=== PATIENT | female | born 1990 | race Caucasian/White ===

== ENCOUNTER 2020-01-09 06:55 | Inpatient (IN) | payer OTHER, SELFPAY ==
[2020-01-09] VITALS (79 sets, daily range): BP systolic 89–141; BP diastolic 49–93; PULSE 69–171; RESP 16; TEMP 36.6–37.6; O2SAT 95–100; BMI 26.7
--- NOTE | 2020-01-09 06:47 | PM.IMHP ---
H&P: HPI History of Present Illness Chief complaint: Pre-In Narrative: Simi English is a 29 year old female whose EDC is 6 [place] confirmed by ultrasound presents at term for induction of labor. has been uncomplicated she is negative group B strep Review of Systems Review of Systems: All systems reviewed & are unremarkable except as noted in HPI and below PMFSH Family History Family History Other Unknown family medical history Social History Social History Substance use: never Spiritual care concerns: No Meds Home Medications and Allergies Home Medications Medication Instructions Recorded Confirmed Type PNV cmb#95-ferrous fumarate-FA 1 tablet PO DAILY 12/16/19 12/16/19 History [] Allergies Allergy/AdvReac Type Severity Reaction Status Date / Time Penicillins Allergy Hives Verified 12/16/19 12:32 Exam Const: General: no acute distress Eyes: General: appearance normal, both eyes and all related structures Neck: Neck: supple and no JVD Thyroid: thyroid normal Resp: Effort & Inspection: normal respiratory effort Auscultation: clear to auscultation bilaterally Cardio: Rate: regular rate Rhythm: regular rhythm GI: Inspection: non-distended GI Palp: Yes Soft to palpation, No Tenderness to palpation present (GI) and No Guarding due to palpation present (GI) Auscultation: normal bowel sounds : General: Yes bladder normal to palpation External Female Exam: normal external appearance Speculum Exam - Vagina: normal vaginal discharge and No vaginal bleeding Speculum Exam - Cervix: nontender Bimanual exam- vagina & uterus: bladder normal to palpation and No Cervical tenderness present OB/external & speculum: No vaginal bleeding Skin: General skin exam: no rashes or lesions noted Extrem: General: normal to inspection and no edema Psych: Mental Status: mental status grossly normal Affect: normal affect Assessment and Plan Additional Plan Impression: Term with favorable cervix Plan: Medical lateral labor. Spontaneous vaginal delivery is expected. She has epidural candidate
--- NOTE | 2020-01-09 07:13 | WPDOBADMIT ---
Obstetrics - Admit Note Admission Note: record reviewed. No pertinent additions to the history and/or any subsequent changes in the physical findings that are not consistent with the expected course of the were found. Additions to the history and/or subsequent changes in the physical findings follow. None. cx /-2 arom clear fhts ok
[2020-01-09] MEDS: LACTATED RINGERS 1,000 ML 125 ML IV CONT ×2 (07:23→09:40)
[2020-01-09 07:24] LABS: Basophils Absolute Auto 0.1 K/mm3 (0.0-0.1); Basophils Percent Auto 0.5 % (0.2-1.2); Eosinophils Absolute Auto 0.2 K/mm3 (0-0.3); Eosinophils Percent Auto 1.3 % (0-4.4); Hematocrit 37.9 % (37.0-47.0); Hemoglobin 12.8 g/dL (12.0-15.0); Immature Granulocyte Percent A 3.5 % (0-0.5); Lymphocytes Absolute Auto 1.56 K/mm3 (0.9-3.2); Lymphocytes Percent Auto 13.7 % (18.3-44.2); Mean Corpuscular HGB Conc 33.8 g/dl (32-36); Mean Corpuscular Hemoglobin 29.3 pg (26-34); Mean Corpuscular Volume 86.7 fl (80-100); Mean Platelet Volume 11.3 fl (7.4-10.4); Monocytes Absolute Auto 0.9 K/mm3 (0.1-0.6); Monocytes Percent Auto 7.7 % (2.6-8.5); Neutrophils Absolute Auto 8.4 K/mm3 (1.3-6.7); Neutrophils Percent Auto 73.3 % (45.5-73.1); Platelet Count Result 223 k/mm3 (150-375); Red Blood Count 4.37 M/mm3 (4.2-5.4); Red Cell Distribution Width 12.9 % (11.5-14.5); White Blood Count 11.4 K/mm3 (4.5-10.0)
--- NOTE | 2020-01-09 07:37 | LDADM ---
This patient, Simi English, was admitted to Labor/Delivery/Recovery 105 on 01/09/20 at 06:55. Plans for labor, pain management and were discussed with patient. Patient/family oriented to hospital policies and general routines including ID bracelet, bed and alarms, visiting hours, pain management, procedures, bathroom and other care routines, personal items, smoking policy, room service/diet and guest tray routines, security routines, and visiting hours. Patient/Family are encouraged to report perceived risks to care and to ask questions if they do not understand what they are told or what they should do. See OBIX for further documentation.
[2020-01-09] MEDS: OXYTOCIN 30 UNITS/NS 500 ML 30 UNITS/500 ML BAG IV CONT (09:36)
[2020-01-09 11:35] LABS: Rapid Plasma Reagin Non-Reactive (NonReactive)
--- NOTE | 2020-01-09 11:42 | PM.OBPRVD ---
OB - Delivery Note Procedure Delivery date: 01/09/20 Procedure: mil//repair 1st degree vag lac Intrapartal events: None Induction method: AROM Delivery augmentation: pitocin Delivery monitor: external FHT Route of delivery: Episiotomy description: None Laceration description: Vaginal - 1st Degree Delivery repair: vicryl Specimen: No Estimated blood loss (mL): 57 Anesthesia type: Epidural Disposition: floor Baby Date of : 01/09/20 Time of : 11:32 Weeks of gestation at delivery: 39 Infant gender: Female presentation: vertex position: Right Occiput Anterior Placenta delivery description: Spontaneous cord vessel description: 3 Vessels and Clamped/Cut score one minute: 5 score five minutes: 9
[2020-01-09] MEDS: OXYTOCIN 30 UNITS/NS 500 ML 30 UNITS/500 ML BAG 125 UNITS IV CONT (12:09)
[2020-01-09] MEDS: WITCH HAZEL 40 PADS 1 PAD TOPICAL (14:04)
[2020-01-09] MEDS: BENZOCAINE 20% AER SPR (*SP) 56 GM CAN 1 SPRAY TOPICAL (14:05)
--- NOTE | 2020-01-09 15:21 | PC.NURSE ---
Addendum entered by Mirta Lamar RN 01/09/20 15:22: arrived to unit at 1411. Original Note: Patient transferred to post room #281 per wheelchair. Support person present. Oriented to unit, room, information board, rooming in, admission packet and security measures. Patient verbalizes understanding.
[2020-01-09] MEDS: DOCUSATE SODIUM 100 MG CAPSULE PO (22:14)
[2020-01-10 05:49] LABS: Hematocrit 35.3 % (37.0-47.0); Hemoglobin 11.6 g/dL (12.0-15.0)
--- NOTE | 2020-01-10 06:48 | P.PNOB_ITS ---
OB - PN: Subj Subjective Date/time seen: 01/10/20 06:48 Patient comments: no complaints and pain well controlled feeding status: exclusively bottle feeding OB - PN: Obj Data Labs CBC & Chem 7: 01/10/20 04:33 Labs: Laboratory Results - last 24 hr 01/09/20 01/09/20 01/09/20 07:16 07:16 07:16 WBC 11.4 H RBC 4.37 Hgb 12.8 Hct 37.9 MCV 86.7 MCH 29.3 MCHC 33.8 RDW 12.9 Plt Count 223 MPV 11.3 H Immature Gran % (Auto) 3.5 H Neut % (Auto) 73.3 H Lymph % (Auto) 13.7 L [place] % (Auto) 7.7 Eos % (Auto) 1.3 Baso % (Auto) 0.5 Lymph # (Auto) 1.56 [place] # (Auto) 0.9 H Eos # (Auto) 0.2 Baso # (Auto) 0.1 Abs Immat Gran (auto) 0.40 H Absolute Neuts (auto) 8.4 H Absolute Nucleated RBC 0.0 Nucleated RBC % 0.0 RPR Non-reactive Blood Type A Positive Antibody Screen Negative 01/10/20 04:33 WBC RBC Hgb 11.6 L Hct 35.3 L MCV MCH MCHC RDW Plt Count MPV Immature Gran % (Auto) Neut % (Auto) Lymph % (Auto) [place] % (Auto) Eos % (Auto) Baso % (Auto) Lymph # (Auto) [place] # (Auto) Eos # (Auto) Baso # (Auto) Abs Immat Gran (auto) Absolute Neuts (auto) Absolute Nucleated RBC Nucleated RBC % RPR Blood Type Antibody Screen OB - PN A/P Plan day: 1 Plan: routine care, discharge home and follow up 6 weeks Time Spent With Patient Time: Total time spent is greater than 50% in coordination of care (as documented) at patient's floor/unit and/or counseling patient: Time with patient: less than 15 minutes Review of Systems Review of Systems: All systems reviewed & are unremarkable except as noted in HPI and below Exam Const: General: no acute distress Eyes: General: appearance normal, both eyes and all related structures Neck: Neck: supple and no JVD Thyroid: thyroid normal Resp: Effort & Inspection: normal respiratory effort Auscultation: clear to auscultation bilaterally Cardio: Rate: regular rate Rhythm: regular rhythm GI: Inspection: non-distended GI Palp: Yes Soft to palpation, No Tenderness to palpation present (GI) and No Guarding due to palpation present (GI) Auscultation: normal bowel sounds : General: Yes bladder normal to palpation External Female Exam: normal e xternal appearance Speculum Exam - Vagina: normal vaginal discharge and No vaginal bleeding Speculum Exam - Cervix: nontender Bimanual exam- vagina & uterus: bladder normal to palpation and No Cervical tenderness present OB/external & speculum: No vaginal bleeding Skin: General skin exam: no rashes or lesions noted Extrem: General: normal to inspection and no edema Psych: Mental Status: mental status grossly normal Affect: normal affect
[2020-01-10 07:40] VITALS: BP 124/72; PULSE 81; RESP 18; TEMP 36.6; O2SAT 98
--- NOTE | 2020-01-10 07:45 | WPDANLDPN2 ---
Anes-Prog Note L&D Date/Time: 01/10/20 07:45 Comfortable throughout: labor and delivery Neuraxial method: epidural Neuro status: Neuro function grossly intact. Cardiovascular status: normal Respiratory status: normal Airway patency: baseline Mental status: baseline Post-Op hydration status: normal Vital Signs: Last Vital Signs Temp 36.8 C 01/09/20 20:15 Pulse 82 01/09/20 20:15 Resp 16 01/09/20 20:15 BP 121/69 01/09/20 20:15 Pulse Ox 98 01/09/20 20:15 I/O: Intake & Output 01/09/20 01/09/20 01/10/20 15:59 23:59 07:59 Intake Total 2200 Balance 2200 Post-procedural complaints: none Patient feedback: Patient satisfied with anesthetic care.
--- NOTE | 2020-01-10 09:35 | PC.NURSE ---
Consulted with patient, mother reports some tenderness with feedings. Mother states she pumped and bottle fed first child for several months, infant would not latch. Reviewed feeding cues, frequencies, duration of feedings, feeding elimination flow sheet, and signs of adequate intake. Demonstrated stimulation techniques to wake for feeding. Assisted with to breast. Reviewed positioning/alignment in cross cradle, holding breast in U hold and guided asymmetrical latch on. Infant was able to latch correctly. Mother reports slight discomfort. Breasts are firm, demonstrated how to adjust latch more deeply while feeding. Mother was able to independently adjust latch and reported less discomfort. Both nipples have redness. Instructed on nipple care. nursed eagerly, with steady draws and frequent swallowing noted. Reviewed signs of a correct latch, effective nursing and suck swallow ratio. was able to maintain latch without discomfort to mother. Mother wishes to be discharged today. Mother is feeding as required and waking to feed if needed. has had several effective feedings (as required) in the past 24 hours, and is currently meeting outcomes for weight, output, jaundice and feeding frequencies. Mother states she feels confident to continue effective at home. Reviewed transition to breast milk, signs of adequate intake, and engorgement/relief. Instructed to call ICP if intake/output less than required. Reviewed regular medications mother is taking. Information provided per [facility]. Reviewed community resources on the [facility] website and in the Mom/Baby guide. Information on outpatient services provided. Mother has no further questions at this time.
[2020-01-11 09:21] VITALS: BP 137/83; PULSE 69; RESP 16; TEMP 36.9; O2SAT 98
--- NOTE | 2020-01-12 12:33 | PM.DS ---
DS: Admitting Diagnosis Admitting Diagnosis Admitting Diagnosis: term DS: Summary Time Spent with Patient Time attestation: Total time spent providing and/or coordinating discharge services: Exam Const: General: no acute distress Eyes: General: appearance normal, both eyes and all related structures Neck: Neck: supple and no JVD Thyroid: thyroid normal Resp: Effort & Inspection: normal respiratory effort Auscultation: clear to auscultation bilaterally Cardio: Rate: regular rate Rhythm: regular rhythm GI: Inspection: non-distended GI Palp: Yes Soft to palpation, No Tenderness to palpation present (GI) and No Guarding due to palpation present (GI) Auscultation: normal bowel sounds : General: Yes bladder normal to palpation External Female Exam: normal external appearance Speculum Exam - Vagina: normal vaginal discharge and No vaginal bleeding Speculum Exam - Cervix: nontender Bimanual exam- vagina & uterus: bladder normal to palpation and No Cervical tenderness present OB/external & speculum: No vaginal bleeding Skin: General skin exam: no rashes or lesions noted Extrem: General: normal to inspection and no edema Psych: Mental Status: mental status grossly normal Affect: normal affect Discharge Plan Discharge Attending physician on discharge: Shawn Ng Discharging Clinician: Shawn Ng Patient Disposition: Home, Self-Care Activity: may shower, no straining and pelvic rest Diet: heart healthy Discharge Instructions: Education: Mom and Baby Guide Given to: Mother Follow-Up: Call your delivering provider's office for an appointment to be seen in: 6 Weeks Mom and baby should come to the [facility] for the follow-up appointment. Appointment Date/Time: January 11, 2020 at 9:00 am What to expect at your follow-up visit: Blood Pressure Check Physical Assessment Call [phone] if you are unable to keep your appointment time. BREAST CARE: 1. Wear a snug supportive bra. 2. For engorgement discomfort: Breast Feeding: A. Apply warm moist washcloths B. Express milk as needed to relieve engorgement C. Wear loose clothing Bottle Feeding: A. May apply ice packs 3. For sore nipples: A. Identify correct latch-on B. Apply warm moist washcloths before and after nursing C. Air dry nipples after nursing D. May apply Lansinoh cream to nipples EPISIOTOMY/PERINEAL CARE: 1. Until bleeding stops, use your peterson bottle after urinating 2. Change your pad frequently throughout the day 3. You may take sitz baths several times a day (fill your bathtub with warm water and soak for 20 minutes.) Do NOT bathe in the water 4. No tub baths until seen by your physician - You may shower ACTIVITY: 1. Rest as much as possible. 2. Do not exercise or lift anything heavier than your baby (such as laundry or other children.) 3. Avoid stairs or driving as much as possible. 4. Do not put anything into the vagina. No douching, tampons, or sexual activity until seen by physician. NOTIFY PHYSICIAN IF YOU HAVE ANY QUESTIONS OR IF ANY OF THE FOLLOWING SYMPTOMS OCCUR: 1. If your episiotomy or incision becomes red, swollen, or more painful than what you have experienced in the hospital. 2. If your vaginal bleeding becomes foul smelling. 3. If your vaginal bleeding becomes more heavy than a period or if your bleeding changes from pink to bright red. However, you may pass an occasional walnut-sized clot once or twice for the first week . 4. If you experience a sharp, shooting pain in you calves. 5. If you discover a hard, reddened area on your breast or if you experience flu-like symptoms. DIET: 1. Eat regular, well-balanced meals. 2. Drink plenty of fluids daily. If , drink to thirst. Stand Alone Forms: General Discharge Information Follow-up/Referrals: [facility]
== END 2020-01-10 14:09 | disposition home or self-care (01) | DRG 807 ==
LOC: ANHLDR 06:58 → ANHOB2 14:51
PROVIDERS: Admitting Provider Obstetrics & Gynecology; Visit Provider Obstetrics & Gynecology
DX: O69.81X0 Labor and delivery complicated by cord around neck, without compression, not applicable or unspecified (principal); Z37.0 Single live birth; Z3A.39 39 weeks gestation of pregnancy; O70.0 First degree perineal laceration during delivery
CPT/HCPCS: 36415; 85014; 85018; 85025; 86592; 86850; 86900; 86901; A9270; J2370; J2590; J2795; J7120

== ENCOUNTER 2024-02-27 12:18 | Inpatient (IN) | payer OTHER, SELFPAY ==
[2024-02-27] VITALS (170 sets, daily range): BP systolic 82–140; BP diastolic 40–114; PULSE 64–242; RESP 16; TEMP 36.9–38.1; O2SAT 94–100; BMI 22.6
[2024-02-27] MEDS: ceFAZolin 2 GM/D5W 50 ML 2 GM/50 ML BAG IVPB (13:00)
[2024-02-27] MEDS: LACTATED RINGERS 1,000 ML 125 ML IV CONT ×2 (13:00→14:31)
--- NOTE | 2024-02-27 13:02 | LDADM ---
This patient, Simi English, was admitted to Labor/Delivery/Recovery 105 on 02/27/24 at 12:18. Plans for labor, pain management and were discussed with patient. Patient/family oriented to hospital policies and general routines including ID bracelet, bed and alarms, visiting hours, pain management, procedures, bathroom and other care routines, personal items, smoking policy, room service/diet and guest tray routines, security routines, and visiting hours. Patient/Family are encouraged to report perceived risks to care and to ask questions if they do not understand what they are told or what they should do. See OBIX for further documentation.
[2024-02-27 13:06] LABS: Basophils Percent Auto 0.4 % (0.2-1.2); Eosinophils Absolute Auto 0.1 K/mm3 (0-0.3); Eosinophils Percent Auto 0.5 % (0-4.4); Hematocrit 34.6 % (37.0-47.0); Hemoglobin 11.7 g/dL (12.0-15.0); Immature Granulocyte Absolute 0.17 K/mm3 (0.00-0.031); Immature Granulocyte Percent A 1.5 % (0-0.5); Lymphocytes Absolute Auto 1.62 K/mm3 (0.9-3.2); Lymphocytes Percent Auto 14.3 % (18.3-44.2); Mean Corpuscular HGB Conc 33.8 g/dl (32-36); Mean Corpuscular Hemoglobin 30.3 pg (26-34); Mean Corpuscular Volume 89.6 fl (80-100); Monocytes Absolute Auto 0.8 K/mm3 (0.1-0.6); Monocytes Percent Auto 7.1 % (2.6-8.5); Neutrophils Absolute Auto 8.6 K/mm3 (1.3-6.7); Neutrophils Percent Auto 76.2 % (45.5-73.1); Platelet Count Result 208 k/mm3 (150-375); Red Blood Count 3.86 M/mm3 (4.2-5.4); Red Cell Distribution Width 12.5 % (11.5-14.5); White Blood Count 11.3 K/mm3 (4.5-10.0)
[2024-02-27 13:50] LABS: HIV 1/2 Ab P24 Ag Result Negative (Negative)
--- NOTE | 2024-02-27 15:06 | WPDANESEPP ---
Anes - Eval Pre Procedure Procedure: labor epidural Date/Time: 02/27/24 15:06 Preop Diagnosis: labor pain Pre Op Diagnosis: Vaginal Bleeding Patient Data Age: 34 Gender: F Height: 1.63 m Weight: 60 kg Last Vital Signs Temp 37.0 C 02/27/24 13:57 Pulse 75 02/27/24 15:00 BP 119/60 02/27/24 15:00 Pulse Ox 99 02/27/24 15:03 O2 Del Method Room Air 02/27/24 13:01 Allergies Allergy/AdvReac Type Severity Reaction Status Date / Time Penicillins Allergy Hives Verified 12/16/19 12:32 Home Medications Medication Instructions Recorded Confirmed Type vit no.95-ferrous 1 tablet PO DAILY 12/16/19 02/27/24 History fumarate 28 mg-folic acid 800 mcg tablet () Laboratory Tests 02/27/24 12:49 WBC 11.3 H K/mm3 (4.5-10.0) RBC 3.86 L M/mm3 (4.2-5.4) Hgb 11.7 L g/dL (12.0-15.0) Hct 34.6 L % (37.0-47.0) MCV 89.6 fl (80-100) MCH 30.3 pg (26-34) MCHC 33.8 g/dl (32-36) RDW 12.5 % (11.5-14.5) Plt Count 208 k/mm3 (150-375) MPV 11.0 H fl (7.4-10.4) Immature Gran % (Auto) 1.5 H % (0-0.5) Neut % (Auto) 76.2 H % (45.5-73.1) Lymph % (Auto) 14.3 L % (18.3-44.2) [place] % (Auto) 7.1 % (2.6-8.5) Eos % (Auto) 0.5 % (0-4.4) Baso % (Auto) 0.4 % (0.2-1.2) Lymph # (Auto) 1.62 K/mm3 (0.9-3.2) [place] # (Auto) 0.8 H K/mm3 (0.1-0.6) Eos # (Auto) 0.1 K/mm3 (0-0.3) Baso # (Auto) 0.0 K/mm3 (0.0-0.1) Abs Immat Gran (auto) 0.17 H K/mm3 (0.00-0.031) Absolute Neuts (auto) 8.6 H K/mm3 (1.3-6.7) Absolute Nucleated RBC 0.000 K/mm3 (0.0-0.012) Nucleated RBC % 0.0 % (0.0-0.2) RPR Pending HIV 1&2 Ab/P24 Ag 4thGn Negative (Negative) Blood Type A Positive Antibody Screen Negative Patient hx anesthesia problems: none Family hx anesthesia problems: none Results Review: All pre-operative results and documents have been reviewed as part of the pre-operative evaluation. [facility] Family History Family History Other Unknown family medical history Social History Social History Smoking status: Never smoker Substance use: never Do You Feel Safe in your Home?: Yes Lack of Transportation: No Lack of Food: Never True Current Housing: I Have Housing Concerned About Future Housing: No Difficulty Paying Gas/Electric Bills: No Difficulty Paying for Meds: No Currently Unemployed: No Education: Bachelor's Degree Difficulty w/ Childcare or Family Care: No Spiritual care concerns: No Exam Day of Procedure 02/27/24 15:06 Patient weight: normal Heart: regular rate and rhythm Lungs: clear to auscultation and normal air movement Airway: Mallampati scale class II Neurological: alert and oriented
[2024-02-27] MEDS: PHENYLEPHRINE 1,000 MCG/10 ML SYRINGE 100 MCG IV PUSH (16:05)
--- NOTE | 2024-02-27 17:42 | PM.IMHP ---
H&P: HPI History of Present Illness Date/Time: 02/27/24 17:42 Chief Complaint: Vaginal bleeding. Narrative: 34 y/o at 36 3/7 weeks here with vaginal bleeding. No contractions. Here in hospital she had gross ROM of clear fluid. Subsequent contractions. Now comfortable with epidural. More blood was seen at her last exam, so I was called to come evaluate. Review of Systems Review of Systems: All systems reviewed & are unremarkable except as noted in HPI and below PMFSH Family History Family History Other Unknown family medical history Social History Social History Smoking status: Never smoker Substance use: never Do You Feel Safe in your Home?: Yes Lack of Transportation: No Lack of Food: Never True Current Housing: I Have Housing Concerned About Future Housing: No Difficulty Paying Gas/Electric Bills: No Difficulty Paying for Meds: No Currently Unemployed: No Education: Bachelor's Degree Difficulty w/ Childcare or Family Care: No Spiritual care concerns: No Meds Home Medications and Allergies Home Medications Medication Instructions Recorded Confirmed Type vit no.95-ferrous 1 tablet PO DAILY 12/16/19 02/27/24 History fumarate 28 mg-folic acid 800 mcg tablet () Allergies Allergy/AdvReac Type Severity Reaction Status Date / Time Penicillins Allergy Hives Verified 12/16/19 12:32 Vital Signs Vital Signs - 24 hr 02/27/24 12:30 02/27/24 12:33 02/27/24 12:38 Temperature Pulse Rate 81 Blood Pressure 133/86 Pulse Oximetry 99 99 Oxygen Delivery 02/27/24 12:43 02/27/24 12:45 02/27/24 12:48 Temperature Pulse Rate 78 Blood Pressure 123/58 L Pulse Oximetry 98 99 Oxygen Delivery 02/27/24 12:53 02/27/24 12:58 02/27/24 13:00 Temperature Pulse Rate 70 Blood Pressure 122/62 Pulse Oximetry 99 99 Oxygen Delivery 02/27/24 13:03 02/27/24 13:08 02/27/24 13:13 Temperature Pulse Rate Blood Pressure Pulse Oximetry 100 99 99 Oxygen Delivery 02/27/24 13:15 02/27/24 13:18 02/27/24 13:23 Temperature Pulse Rate 71 Blood Pressure 127/76 Pulse Oximetry 100 100 Oxygen Delivery 02/27/24 13:28 02/27/24 13:30 02/27/24 13:33 Temperature Pulse Rate 72 Blood Pressure 122/71 Pulse Oximetry 99 100 Oxygen Delivery 02/27/24 13:38 02/27/24 13:43 02/27/24 13:45 Temperature Pulse Rate 72 Blood Pressure 117/63 Pulse Oximetry 100 99 Oxygen Delivery 02/27/24 13:48 02/27/24 13:53 02/27/24 13:58 Temperature Pulse Rate Blood Pressure Pulse Oximetry 100 100 99 Oxygen Delivery 02/27/24 14:03 02/27/24 14:08 02/27/24 14:13 Temperature Pulse Rate Blood Pressure Pulse Oximetry 100 100 100 Oxygen Delivery 02/27/24 14:18 02/27/24 14:23 02/27/24 14:28 Temperature Pulse Rate Blood Pressure Pulse Oximetry 100 100 100 Oxygen Delivery 02/27/24 14:33 02/27/24 14:38 02/27/24 14:43 Temperature Pulse Rate Blood Pressure Pulse Oximetry 100 100 100 Oxygen Delivery 02/27/24 14:48 02/27/24 13:57 02/27/24 14:53 Temperature 37.0 C Pulse Rate Blood Pressure Pulse Oximetry 100 100 Oxygen Delivery 02/27/24 14:58 02/27/24 15:00 02/27/24 15:03 Temperature Pulse Rate 75 Blood Pressure 119/60 Pulse Oximetry 100 99 Oxygen Delivery 02/27/24 15:08 02/27/24 15:10 02/27/24 15:15 Temperature Pulse Rate Blood Pressure Pulse Oximetry 99 99 99 Oxygen Delivery 02/27/24 15:20 02/27/24 15:25 02/27/24 15:26 Temperature Pulse Rate 68 87 Blood Pressure 115/65 108/60 Pulse Oximetry 100 100 Oxygen Delivery 02/27/24 15:27 02/27/24 15:30 02/27/24 15:33 Temperature Pulse Rate 78 80 79 Blood Pressure 121/58 L 129/61 116
[2024-02-27] MEDS: OXYTOCIN 30 UNITS/NS 500 ML 30 UNITS/500 ML BAG IV CONT (18:41)
--- NOTE | 2024-02-27 18:59 | PM.OBPNLAB ---
Pain Control Date/time seen: 02/27/24 18:59 Comments: Comfortable. Pelvic Exam Dilation (cm): 5 Effacement (%): 50 station: -2 Contractions Contraction pattern: Irregular Status status: Category l Assessment and Plan Pitocin rate (mU/min): 2 Plan: continuous present management
--- NOTE | 2024-02-27 20:37 | PM.OBPRVD ---
OB - Vaginal Delivery Note Procedure Delivery date: 02/27/24 Induction method: None Delivery augmentation: Pitocin Delivery monitor: External FHT, External Uterine and Internal Uterine Route of delivery: Laceration Description: None Specimen: Yes (cord blood) Quantitative Blood Loss (ml): 120 Anesthesia type: Epidural Disposition: PACU Complications: None Narrative: 34 y/o at 36 3/7 weeks gestation who presented to the hospital after a gush of blood. While on L&D for evaluation, she had SROM of clear fluid. She was admitted and received an epidural for pain control. She was given Ancef for GBS unknown status in the . Labor was subsequently augmented with oxytocin. Her labor progressed and her cervix dilated completely. She pushed with good effort over only one contraction and delivered the 's head to the perineum, followed by the body. The nose and mouth were bulb suctioned. After a delay, the cord was clamped and cut. The was handed off the field. Cord blood was collected. The placenta delivered spontaneously and was grossly normal in appearance. The usual 3 vessel cord was noted. There were no lacerations. Needle and instrument counts were correct. The patient was taken to recovery room in stable condition. The went to the nursery in stable condition. I was present and scrubbed for the entire delivery. [place] [facility] Date of : 02/27/24 Time of : 20:27 Weeks of gestation at delivery: 36 gender: Female presentation: vertex position: Left Occiput Anterior Placenta delivery description: Spontaneous and Normal Configuration Cord Vessel Description: 3 Vessels, Nuchal Cord and Delayed Cord Clamping score one minute: 9 score five minutes: 9
--- NOTE | 2024-02-27 20:41 | PM.OBDSVD ---
DS: Admitting Diagnosis Discharge Date 02/29/24 <Luke Garcia MD - Last Filed: 02/29/24 08:55> Admitting Diagnosis IUP at 36 3/7 weeks SROM <Luke Garcia MD - Last Filed: 02/29/24 08:55> DS: Discharge Diagnosis Discharge Diagnosis (1) (normal spontaneous vaginal delivery): Code(s): O80 - Encounter for full-term uncomplicated delivery <Luke Garcia MD - Last Filed: 02/29/24 08:55> Status: Acute <Luke Garcia MD - Last Filed: 02/29/24 08:55> (2) delivery, delivered: Code(s): O60.10X0 - labor with delivery, unspecified trimester, not applicable or unspecified <Luke Garcia MD - Last Filed: 02/29/24 08:55> Status: Acute <Luke Garcai MD - Last Filed: 02/29/24 08:55> OB - DS: Summary Hospital Course Hospital Course: Paste underwent spontaneous vaginal delivery. Her hospital course unremarkable of the baby was then irregular heartbeat was kept is no care bed. She remained afebrile she was up, voiding without difficulty, eating regular diet, ambulating, generally without complaints. <Luke Garcia MD - Last Filed: 02/29/24 08:55> OB Procedures : None <Luke Garcia MD - Last Filed: 02/29/24 08:55> OB Procedures Intrapartum: GBS prophylaxis <Luke Garcai MD - Last Filed: 02/29/24 08:55> OB Procedures: : None <Luke Garcia MD - Last Filed: 02/29/24 08:55> Peripartum Data Laceration Description: None <Luke Garcia MD - Last Filed: 02/29/24 08:55> Time Spent with Patient Time attestation: Total time spent providing and/or coordinating discharge services: <Luke Garcia MD - Last Filed: 02/29/24 08:55> Exam Const: General: cooperative, healthy appearing and comfortable <Shawn Contreras MD - Last Filed: 02/29/24 07:15> Nutritional Appearance: average body habitus <Shawn Contreras MD - Last Filed: 02/29/24 07:15> Orientation/consciousness: oriented to person, oriented to place and oriented to time <Shawn Contreras MD - Last Filed: 02/29/24 07:15> HENMT: Head: normal to inspection <Shawn Contreras MD - Last Filed: 02/29/24 07:15> Resp: Effort & Inspection: normal respiratory effort <Shawn Contreras MD - Last Filed: 02/29/24 07:15> Cardio: Rate: regular rate <Shawn Contreras MD - Last Filed: 02/29/24 07:15> Rhythm: regular rhythm <Shawn Contreras MD - Last Filed: 02/29/24 07:15> Heart sounds: S1 normal heart sound present and S2 normal heart sound present <Shawn Contreras MD - Last Filed: 02/29/24 07:15> GI: Inspection: normal to inspection <Shawn Contreras MD - Last Filed: 02/29/24 07:15> DS: Data Data Completed and Pending Labs on day of discharge: Labs from last 24 hours 02/27/24 12:49 WBC 11.3 H RBC 3.86 L Hgb 11.7 L Hct 34.6 L MCV 89.6 MCH 30.3 MCHC 33.8 RDW 12.5 Plt Count 208 MPV 11.0 H Immature Gran % (Auto) 1.5 H Neut % (Auto) 76.2 H Lymph % (Auto) 14.3 L [place] % (Auto) 7.1 Eos % (Auto) 0.5 Baso % (Auto) 0.4 Lymph # (Auto) 1.62 [place] # (Auto) 0.8 H Eos # (Auto) 0.1 Baso # (Auto) 0.0 Abs Immat Gran (auto) 0.17 H Absolute Neuts (auto) 8.6 H Absolute Nucleated RBC 0.000 Nucleated RBC % 0.0 RPR Pending HIV 1&2 Ab/P24 Ag 4thGn Negative Blood Type A Positive Antibody Screen Negative <Luke Garcia MD - Last Filed: 02/29/24 08:55> Discharge Plan Discharge Attending physician on discharge: Luke Garcia <Luke Garcia MD - Last Filed: 02/29/24 08:55> Luke Garcia <Shawn Contreras MD - Last Filed: 02/29/24 07:15> Discharging Clinician: Shawn Barnes <Luke Garcia MD - Last Filed: 02/29/24 08:55> Shawn Barnes <Shawn Contreras MD - Last Filed: 02/29/24 07:15> Patient Disposition: Home, Self-Care <Luke Garcia MD - Last
[2024-02-27] MEDS: ACETAMINOPHEN 500 MG TABLET 1000 MG PO (20:57)
[2024-02-27] MEDS: OXYTOCIN 30 UNITS/NS 500 ML 30 UNITS/500 ML BAG 125 UNITS IV CONT (21:00)
[2024-02-27] MEDS: WITCH HAZEL 40 PADS 1 PAD TOPICAL (22:09)
[2024-02-27] MEDS: BENZOCAINE 20% AER SPR (*SP) 56 GM CAN 1 SPRAY TOPICAL (22:09)
[2024-02-27] MEDS: IBUPROFEN 600 MG TABLET PO (23:24)
[2024-02-28 00:18] LABS: Rapid Plasma Reagin Non-Reactive (NonReactive)
--- NOTE | 2024-02-28 04:31 | OBPPTRN ---
Patient transferred to post room #[id number] . Support person present. Oriented to unit, room, information board, rooming in, admission packet and security measures. Patient verbalizes understanding.
[2024-02-28 04:55] LABS: Hematocrit 29.1 % (37.0-47.0); Hemoglobin 9.7 g/dL (12.0-15.0)
[2024-02-28] MEDS: IBUPROFEN 600 MG TABLET PO (04:58)
[2024-02-28] MEDS: ACETAMINOPHEN 325 MG TABLET 650 MG PO (04:58)
[2024-02-28] MEDS: DOCUSATE SODIUM 100 MG CAPSULE PO ×2 (07:49→17:05)
[2024-02-28] MEDS: MULTIVIT/MIN/PREN/FOL AC/IRON TABLET 1 TAB PO (07:50)
[2024-02-28] MEDS: LANOLIN (LANSINOH) 7.5 GM CREAM 1 APPLIC TOPICAL (07:50)
[2024-02-28] MEDS: POLYSACCHARIDE IRON COMPLEX 150 MG CAPSULE PO ×2 (07:50→17:05)
[2024-02-28 07:51] VITALS: BP 118/66; PULSE 72; RESP 16; TEMP 36.5; O2SAT 100
--- NOTE | 2024-02-28 09:15 | PM.OBPNVD ---
OB - PN: Subj Subjective Date/time seen: 02/28/24 09:15 Narrative: Pain OK. OB - PN: Obj Data Labs 02/28/24 04:45 Labs: Laboratory Results - last 24 hr 02/27/24 02/28/24 12:49 04:45 WBC 11.3 H RBC 3.86 L Hgb 11.7 L 9.7 L Hct 34.6 L 29.1 L MCV 89.6 MCH 30.3 MCHC 33.8 RDW 12.5 Plt Count 208 MPV 11.0 H Immature Gran % (Auto) 1.5 H Neut % (Auto) 76.2 H Lymph % (Auto) 14.3 L [place] % (Auto) 7.1 Eos % (Auto) 0.5 Baso % (Auto) 0.4 Lymph # (Auto) 1.62 [place] # (Auto) 0.8 H Eos # (Auto) 0.1 Baso # (Auto) 0.0 Abs Immat Gran (auto) 0.17 H Absolute Neuts (auto) 8.6 H Absolute Nucleated RBC 0.000 Nucleated RBC % 0.0 RPR Non-reactive HIV 1&2 Ab/P24 Ag 4thGn Negative Blood Type A Positive Antibody Screen Negative OB - PN A/P Plan day: 1 Comments: A: PPD#1, doing well. P: Routine care. Home tomorrow. Exam Psych: Other: AVSS ABD soft, nontender, fundus firm EXT nontender
[2024-02-28 13:00] VITALS: BP 111/73; PULSE 75; RESP 16; TEMP 36.1; O2SAT 100
--- NOTE | 2024-02-28 15:40 | WPDANLDPN2 ---
Anes-Prog Note L&D Date/Time: 02/28/24 15:40 Comfortable throughout: labor and delivery Neuraxial method: epidural Epidural/Spinal procedure site: clean & non-tender Neuro status: Neuro function grossly intact. Cardiovascular status: normal Respiratory status: normal Airway patency: baseline Mental status: baseline Post-Op hydration status: normal Vital Signs: Last Vital Signs Temp 37.2 C 02/27/24 23:10 Pulse 86 02/27/24 23:10 Resp 16 02/27/24 23:10 BP 117/68 02/27/24 23:10 Pulse Ox 100 02/27/24 23:10 O2 Del Method Room Air 02/27/24 13:01 Pain score (VAS): 0 I/O: Intake & Output 02/27/24 02/28/24 02/28/24 23:59 07:59 15:59 Intake Total 100 Balance 100 Post-procedural complaints: none Patient feedback: Patient satisfied with anesthetic care.
[2024-02-28 20:50] VITALS: BP 111/67; PULSE 79; RESP 16; TEMP 37.3; O2SAT 99
--- NOTE | 2024-02-29 07:15 | PM.OBPNVD ---
OB - PN: Subj Subjective Date/time seen: 02/29/24 07:15 Patient comments: no complaints and pain well controlled baby status: doing well and other ( Baby me to stay secondary to irregular rhythm) OB - PN: Obj Data Labs 02/28/24 04:45 OB - PN A/P Plan day: 2 Plan: routine care, discharge home and follow up 6 weeks Time Spent With Patient Time: Total time spent is greater than 50% in coordination of care (as documented) at patient's floor/unit and/or counseling patient: Time with patient: less than 15 minutes Exam Const: General: cooperative, healthy appearing and comfortable Nutritional Appearance: average body habitus Orientation/consciousness: oriented to person, oriented to place and oriented to time Resp: Effort & Inspection: normal respiratory effort Cardio: Rate: regular rate Rhythm: regular rhythm Heart sounds: S1 normal heart sound present and S2 normal heart sound present GI: Inspection: normal to inspection
[2024-02-29 08:10] VITALS: BP 117/72; PULSE 75; RESP 16; TEMP 36.8; O2SAT 100
[2024-02-29] MEDS: DOCUSATE SODIUM 100 MG CAPSULE PO ×2 (08:12→17:37)
[2024-02-29] MEDS: MULTIVIT/MIN/PREN/FOL AC/IRON TABLET 1 TAB PO (08:12)
[2024-02-29] MEDS: POLYSACCHARIDE IRON COMPLEX 150 MG CAPSULE PO ×2 (08:13→17:37)
--- NOTE | 2024-02-29 10:49 | PC.NURSE ---
1030. Introductions were made, then consulted with patient to assess needs related to . Mother led the conversation with her?plans to feed?her infant and the?experience so far. Encouraged understanding of the benefits of skin to skin (demonstrating unwrapping infant and placing upright on her chest), stimulating with massage touch, changing positions to encourage wakefulness, how to watch for early feeding cues, responsive feeding, feeding on demand (aiming for 8-12 times in 24 hours, about every 2-3 hours), milk production, building/maintaining a milk supply, duration of feeding, signs of adequate intake/output and how to record on the feeding sheet. Mother verbalizes she is able to independently latch with appropriate positioning and alignment. She denies any nipple discomfort. Infant is currently meeting outcomes for output, jaundice, blood sugar and feeding frequencies of 8-12 times in 24 hours. Baby is not currently meeting outcomes for weight. Mom is currently attempting to breastfeed for 15 minutes, pumping for 15 min to protect her supply, and supplementing infant with at least 10-15ml of formula. Mother verbalizes she is able to independently latch with appropriate positioning and alignment. She denies any nipple discomfort and is responsively . Education given to the mother of how to visualize the suckling (with good rocking jaw motion), swallows (dropping of the lower jaw) and how to listen for drinking at the breast (the ka sound). Reviewed comfort measures of healing with a warm, wet washcloth to rinse breast, then leave open to air-dry, good handwashing when or touching the breast/nipples to prevent infection. Mother voiced understanding of skin to skin, stimulating with massage touch, responsive feedings, hand expressed colostrum, talking to to encourage if it has been 2 -2.5 hours since the start of the last , to call if infant does not latch, or if there is discomfort with . Resources used for education were facilitated with the visual educational handouts/ tool/mom and baby guide. Parents voiced understanding of information, demonstrated learning and will call if there is a request for assistance. Reported to the Primary RN.
[2024-03-02 09:43] VITALS: BP 139/77; PULSE 77; RESP 18; TEMP 37.2; O2SAT 100
== END 2024-02-29 19:45 | disposition home or self-care (01) | DRG 807 ==
LOC: ANHLDR 20:42 → ANHOB2 23:04
PROVIDERS: Admitting Provider Obstetrics & Gynecology; Visit Provider Obstetrics & Gynecology
DX: O60.14X0 Preterm labor third trimester with preterm delivery third trimester, not applicable or unspecified (principal); Z37.0 Single live birth; Z3A.36 36 weeks gestation of pregnancy; O69.81X0 Labor and delivery complicated by cord around neck, without compression, not applicable or unspecified
CPT/HCPCS: 36415; 85014; 85018; 85025; 86592; 86703; 86850; 86900; 86901; A9270; G0432; J0690; J2371; J2590; J2795; J7120